=== PATIENT | female | born 1990 | race Caucasian/White ===

== ENCOUNTER 2018-08-22 10:41 | Outpatient (CLI) | payer MEDICAID, SELFPAY ==
--- NOTE | 2018-08-22 11:12 | DI.CT_ITS ---
SYMPTOMS/DIAGNOSIS: ? MAXILLARY SINUS MASS, R22.0, NASAL SEPTAL DEVIATION, J34.2, HYPERTROPHY OF INFERIOR NASAL TURBINATE, J34.[address]: CT examination of the paranasal sinuses was performed according to the usual protocol. The brain appears unremarkable as visualized. The orbital structures appear intact. No abnormality seen in the upper cervical region. The mastoid air cells are clear and the temporal bone structures appear intact. There is predominant opacification of the right maxillary antrum. There is no evidence of expansile lesion or bony destruction. Medial wall of the right maxillary antrum incompletely visualized and correlation is requested regarding any previous surgery. There is a mild septal deviation to the right. Left maxillary antrum is clear with unremarkable appearance of the ostiomeatal complex. Incidental presumed small retention cyst of the floor of the right sphenoid sinus noted. Otherwise the sphenoid, ethmoid and frontal sinuses appear clear. CONCLUSION: Nonspecific opacification right maxillary antrum. No evidence of expansile or destructive process.
== END 2018-08-22 11:01 ==
PROVIDERS: PCP Physician Assistant Medical; Visit Provider Otolaryngology Otolaryngology/Facial Plastic Surgery
DX: J32.0 Chronic maxillary sinusitis (principal); J34.2 Deviated nasal septum; J34.3 Hypertrophy of nasal turbinates
CPT/HCPCS: 70486

== ENCOUNTER 2020-05-30 02:39 | Outpatient (CLI) | payer MEDICAID, SELFPAY ==
[2020-06-02 18:13] LABS: Alternaria Tenuis IgE <0.35 kU/L; Aspergillus Fumigatus IgE <0.35 kU/L; Bermuda Grass IgE <0.35 kU/L; Cat Epithelium IgE 1.15 kU/L; Cladosporium IgE <0.35 kU/L; Cocklebur IgE <0.35 kU/L; Cockroach IgE <0.35 kU/L; D Farinae IgE <0.35 kU/L; D Pteronyssinus IgE <0.35 kU/L; Eastern Sycamore IgE <0.35 kU/L; Elm IgE <0.35 kU/L; Epicoccum purpurascens IgE <0.35 kU/L; Giant Ragweed IgE <0.35 kU/L; Lamb's Quarter IgE <0.35 kU/L; Oak IgE <0.35 kU/L; Penicillium chrysogenum IgE <0.35 kU/L; Red Sorrel IgE <0.35 kU/L; Rough Pigweed IgE <0.35 kU/L; Short Ragweed IgE <0.35 kU/L; Silver Birch IgE <0.35 kU/L; Stemphyllium IgE <0.35 kU/L; Timothy Grass IgE <0.35 kU/L; Walnut Tree IgE <0.35 kU/L; Wormwood IgE <0.35 kU/L
[2020-06-03 13:33] LABS: Cottonwood IgE <0.35 kU/L
[2020-06-06 16:13] LABS: CLASS 0; Cedar Red IgE <0.10 kU/L (<0.35); Fusarium oxysporum/vasinfectum <0.35 kU/L (<0.35); Rhodotorula IgE <0.35 kU/L (<0.35)
== END 2020-05-30 02:59 ==
PROVIDERS: PCP Physician Assistant Medical; Visit Provider Otolaryngology Otolaryngology/Facial Plastic Surgery
DX: J30.9 Allergic rhinitis, unspecified (principal); J31.0 Chronic rhinitis; Z01.82 Encounter for allergy testing
CPT/HCPCS: 36415; 86003

== ENCOUNTER 2021-09-07 03:03 | Outpatient (CLI) | payer MEDICAID, SELFPAY ==
--- NOTE | 2021-09-07 11:30 | NS.NUTBLAN_ITS ---
Carolyn is referred to weight loss counseling for obesity. 5'3 263 lbs, BMI 45. Diet recall: coffee and muffin for breakfast, no lunch typically, home cooked meal at night. Occasionally has soda. Exericse: No regular exercise. Does walk sometimes about 1mile. Carolyn reports her typical adult weight is 140-150 lbs. Since second son born, has steadily been gaining weight. Has strong family history of obesity, DM. TSH wnl. Session today focused on how to balance meals with emphasis on complex carbs, lean protein and healthy fats. Encouraged daily exercise and eating at least 3 times per day. Suspect insulin resistance may be causing weight gain with erratic meals and mostly healthy foods choices. Reports not having pleasure eating and a hx of IBS, sesaonal affects disorder. Reviewed importance on eating on a schedule and meeting macronutrient needs. Encouraged MVI and Vitamin D for supplementation. Goal: 10 lbs weight loss per month. Goal Wt: 180-190 lbs Follow up scheduled for 11/16/21 at 11 am.
== END 2021-09-07 03:04 | disposition home or self-care (01) ==
LOC: DS 03:03
PROVIDERS: PCP Physician Assistant Medical; Visit Provider Dietitian, Registered
DX: E66.8 Other obesity (principal); Z68.42 Body mass index [BMI] 45.0-49.9, adult; Z71.3 Dietary counseling and surveillance
CPT/HCPCS: 97802

== ENCOUNTER 2021-10-19 16:45 | Outpatient (REF) | payer MEDICAID, SELFPAY ==
[2021-10-20 14:11] LABS: COVID-19 RT-PCR UVMMC Result Negative (Negative)
== END 2021-10-19 16:46 | disposition home or self-care (01) ==
LOC: LBN 16:45
PROVIDERS: PCP Physician Assistant Medical; Visit Provider Physician Assistant Medical
DX: Z20.822 Contact with and (suspected) exposure to COVID-19 (principal); J34.89 Other specified disorders of nose and nasal sinuses
CPT/HCPCS: U0003

== ENCOUNTER 2021-10-24 10:32 | Outpatient (REF) | payer MEDICAID, SELFPAY ==
[2021-10-24 15:11] LABS: Anion Gap 9.6 mmol/L (3-11); BUN 11 mg/dL (7-18); CO2 26.4 mmol/L (21.0-32.0); CREATININE 0.8 mg/dL (0.55-1.02); Calcium 8.5 mg/dL (8.5-10.1); Calculated LDL 93 mg/dL (<100); Chloride 103 mmol/L (98-107); Cholesterol 150 mg/dL (<200); Glucose 89 mg/dL (74-106); HDL Cholesterol 45 mg/dL (40-60); Potassium 4.1 mmol/L (3.5-5.1); Sodium 139 mmol/L (136-145); TSH (W/Ref FT4) 2.16 uIU/mL (0.36-3.74); Triglyceride 63 mg/dL (<150)
== END 2021-10-24 10:33 | disposition home or self-care (01) ==
LOC: NCHCN 10:32
PROVIDERS: PCP Physician Assistant Medical; Visit Provider Nurse Practitioner Family
DX: Z13.220 Encounter for screening for lipoid disorders (principal); Z13.228 Encounter for screening for other metabolic disorders; Z13.29 Encounter for screening for other suspected endocrine disorder; Z00.00 Encounter for general adult medical examination without abnormal findings
CPT/HCPCS: 80048; 80061; 84443

== ENCOUNTER 2021-11-16 02:57 | Outpatient (CLI) | payer MEDICAID, SELFPAY | END 2021-11-16 02:58 | disposition home or self-care (01) | LOC: DS 02:57 | PROVIDERS: PCP Physician Assistant Medical; Visit Provider Dietitian, Registered ==

== ENCOUNTER 2022-04-27 15:22 | Outpatient (REF) | payer MEDICAID, SELFPAY ==
[2022-04-29 17:37] LABS: Estradiol 253 pg/mL (See Note); Progesterone 0.3 ng/mL (See Table)
[2022-05-04 15:54] LABS: Testosterone, Free 0.45 ng/dL (<0.13-1.03); Testosterone, Total 23 ng/dL (8-60)
== END 2022-04-27 15:23 | disposition home or self-care (01) ==
LOC: NCHCN 15:22
PROVIDERS: PCP Physician Assistant Medical; Visit Provider Nurse Practitioner Family
DX: R68.82 Decreased libido (principal)
CPT/HCPCS: 84402; 84403; 82670; 84144

== ENCOUNTER 2024-02-10 17:53 | Outpatient (REF) | payer BC, MEDICAID, SELFPAY ==
[2024-02-10 15:35] LABS: HCT 41.4 % (36.0-46.0); HGB 13.4 g/dL (11.2-15.7); MCH 29.3 pg (27.0-33.0); MCHC 32.4 % (32.0-36.0); MCV 90 fL (80-95); MPV 12.7 fL (8.0-11.0); Platelet Count 235 10^3/uL (130-400); RBC 4.58 10^6/uL (3.93-5.22); RDW 14.3 % (11.7-14.6); RDW-SD 47.8 fL; WBC 7.91 10^3/uL (4.4-10.8)
[2024-02-10 16:17] LABS: Iron 88 ug/dL (50-170)
== END 2024-02-10 17:54 | disposition home or self-care (01) ==
LOC: NCHCN 17:53
PROVIDERS: PCP Physician Assistant Medical; Visit Provider Physician Assistant
DX: G25.81 Restless legs syndrome (principal)
CPT/HCPCS: 85027; 83540